=== PATIENT | female | born 1960 | race American Indian/Alaskan Native ===

== ENCOUNTER 2016-12-16 16:26 | Emergency (ER) | payer MEDICAID ==
[2016-12-16 16:40] VITALS: BP 169/78
--- NOTE | 2016-12-16 17:14 | EDM.PDOC ---
ED HPI GI/ABDOMINAL - General Chief Complaint: Abdominal Pain Stated Complaint: ABDOMINAL PAIN BY AMBULANCE Time Seen by Provider: 12/16/16 17:11 Source of Information: Reports: Patient History Limitations: Reports: No limitations - History of Present Illness INITIAL COMMENTS - FREE TEXT/NARRATIVE: pt states that she has a hernia that is reducible but is having abdominal pain currently. States that she felt the hernia pop out earlier but was told by her surgeon to lay flat and push it back in. No hernia noted upon arrival. Symptom Onset Date: 12/16/16 Location: RLQ Quality: Reports: ache Severity: moderate Associated Symptoms (-Female): Reports: denies other symptoms - Related Data Allergies/ADRs: Allergies Allergy/AdvReac Type Severity Reaction Status Date / Time codeine Allergy nausea and Verified 12/16/16 16:40 vomitting Penicillins Allergy Hives Verified 12/16/16 16:40 pentazocine lactate Allergy nausea and Verified 12/16/16 16:40 [From Talwin] vomitting Tetracyclines Allergy Swelling Verified 12/16/16 16:40 Home Meds: Home Meds Acetaminophen/oxyCODONE [Percocet 325-5 MG] 1 tab PO Q12H PRN 09/28/13 [History] traMADol [Ultram] 4 tab PO Q6H 05/10/15 [History] Ibuprofen [Advil] 800 mg PO Q12H PRN 06/11/16 [History] Past Medical History HEENT History: Reports: Impaired vision, Other (see below) Other HEENT History: WEARS CORRECTIVE LENSES Cardiovascular History: Reports: Aneurysm, SOB on exertion Other Cardiovascular History: PATIENT DENIES ANEURYSM Respiratory History: Reports: COPD, Pneumonia, recurrent, SOB Gastrointestinal History: Reports: None, Hepatitis, Other (see below) Other Gastrointestinal History: CHRONIC HEP C 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 History: Reports: 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: Musculoskeletal History: Reports: Back pain, chronic, Fibromyalgia, Osteoarthritis, Osteoporosis Neurological History: Reports: None, Other (see below) Other Neuro History: CHRONIC PAIN SYNDROME Psychiatric History: Reports: Depression Endocrine/Metabolic History: Reports: None Hematologic History: Reports: Blood transfusion(s) Immunologic History: Reports: None Oncologic (Cancer) History: Reports: None Dermatologic History: Reports: None - Infectious Disease History Infectious Disease History: Reports: Hepatitis C - Past Surgical History Head Surgeries/Procedures: Reports: None HEENT Surgical History: Reports: Oral surgery Cardiovascular Surgical History: Reports: None Respiratory Surgical History: Reports: None GI Surgical History: Reports: None, Colonoscopy, EGD, Hernia, inguinal Female Surgical History: Reports: Breast biopsy, section, Hysterectomy Endocrine Surgical History: Reports: None Neurological Surgical History: Reports: None Musculoskeletal Surgical History: Reports: None Oncologic Surgical History: Reports: None Dermatological Surgical History: Reports: None Social & Family History - Family History HEENT: Reports: Impaired vision Cardiac: Reports: None Respiratory: Reports: COPD GI: Reports: GERD : Reports: None OBGYN: Reports: Musculoskeletal: Reports: Arthritis Neurological: Reports: Migraines Psychiatric: Reports: Depression Endocrine/Metabolic: Reports: Diabetes, type II Hematologic: Reports: None Immunologic: Reports: None Dermatologic: Reports: None Oncologic: Reports: Breast, Other (see below) Other Oncologic Family History: "STOMACH, BREAST, JUST ALL OVER" - Tobacco Use Smoking Status *Q: Current Every Day Smoker Years of Tobacco use: 43 Packs/Tins Daily: 0.5 Used Tobacco, but Quit: No Second Hand Smoke Exposure: No - Caffeine Use Caffeine Use: Reports: Coffee, Soda Caffeine Use Comment: 6-7 8OZ CUPS DAILY - Alcohol Use Days Per Week of Alcohol Use: 2 Number of Drinks Per Day: 4 Total Drinks Per Week: 8 - Recreational Drug Use Recreational Drug Use: No Drug Use in Last 12 Months: No ED ROS GENERAL - Review of Systems Review Of Systems: See Below GI/Abdominal: Reports: Abdominal pain ED EXAM, GI/ABD - Physical Exam Exam: See Below Exam Limited By: No limitations General Appearance: alert, WD/WN, no apparent distress Respiratory/Chest: no respiratory distress, lungs clear, normal breath sounds, no accessory muscle use, chest non-tender Cardiovascular: normal peripheral pulses, regular rate, rhythm, no edema, no gallop, no JVD, no murmur, no rub GI/Abdominal: normal bowel sounds, soft, no organomegaly, no distention, no abnormal bruit, no mass, tenderness (No hernia noted to either side of abdomen however tender to palpation) Course - Vital Signs Last Recorded V/S: Last Vital Signs Temp 97.7 F 12/16/16 16:32 Pulse 96 12/16/16 16:32 Resp 16 12/16/16 16:32 BP 169/78 H 12/16/16 16:32 Pulse Ox 98 12/16/16 16:32 - Orders/Labs/Meds Meds: Medications Discontinued Medications Generic Name Dose Route Start Last Admin Trade Name Alexa PRN Reason Stop Dose Admin Tramadol HCl 50 mg 12/16/16 17:16 12/16/16 17:25 Ultram PO 12/16/16 17:17 50 mg ONETIME ONE Administration - Re-Assessments/Exams Free Text/Narrative Re-Assessment/Exam: 12/16/16 17:36 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 Departure - Departure Time of Disposition: 17:37 Disposition: Home, Self-Care 01 Condition: good Clinical Impression: Abdominal pain Qualifiers: Abdominal location: right lower quadrant Qualified Code(s): R10.31 - Right lower quadrant pain Instructions: Abdominal Pain, Adult, [id number] Forms: ED Department Discharge Additional Instructions: Make sure that you call your surgeon to have them evaluate your hernias. Return for any worsening symptoms.
[2016-12-16] MEDS ORDERED: traMADol 50 MG Tab PO ONE (17:16)
== END 2016-12-16 17:49 | disposition home or self-care (01) ==
LOC: DL.ED 16:26
DX: R10.31 Right lower quadrant pain (principal); J44.9 Chronic obstructive pulmonary disease, unspecified; Z87.01 Personal history of pneumonia (recurrent); M19.90 Unspecified osteoarthritis, unspecified site; F32.9 Major depressive disorder, single episode, unspecified; F17.210 Nicotine dependence, cigarettes, uncomplicated; Z88.0 Allergy status to penicillin; Z88.5 Allergy status to narcotic agent; Z88.1 Allergy status to other antibiotic agents; Z79.899 Other long term (current) drug therapy; Z98.890 Other specified postprocedural states; Z90.710 Acquired absence of both cervix and uterus
CPT/HCPCS: 99284; A9270

== ENCOUNTER 2017-05-03 07:48 | Emergency (ER) | payer MEDICAID ==
--- NOTE | 2017-05-03 08:15 | EDM.PDOC ---
ED HPI GENERAL MEDICAL PROBLEM - General Chief Complaint: General Stated Complaint: HERNIAS, SEVERE MUSCLE CRAMPS IN LEGS, [id number] Time Seen by Provider: 05/03/17 08:12 Source of Information: Reports: Patient, Old Records, RN, RN Notes Reviewed History Limitations: Reports: No Limitations - History of Present Illness INITIAL COMMENTS - FREE TEXT/NARRATIVE: Arrives from home by POV with c/o recurrent cramping in B/L lower legs. Pt states she randomly gets the cramps which at times become debilitating, similar to severe toshia horses. The cramps come without warning and are not related to time of day, activity level, sleep, or meal time. Pt also c/o chronic ventral hernias, but states that she has been seen before in the ER, and by her PCP. She had a hernia repair in late 2015, and has a future surgical consult already scheduled. Onset: Unknown/Unsure Duration: Chronic Location: Reports: Lower Extremity, Left, Lower Extremity, Right Quality: Reports: Other (cramping) Severity: Severe Improves with: Reports: None Worsens with: Reports: None Associated Symptoms: Reports: No Other Symptoms Bilateral Lower Abdomen Pain Score (Numeric/FACES): 9 - Related Data Allergies Allergy/AdvReac Type Severity Reaction Status Date / Time codeine Allergy nausea and Verified 05/03/17 07:55 vomitting Penicillins Allergy Hives Verified 05/03/17 07:55 pentazocine lactate Allergy nausea and Verified 05/03/17 07:55 [From Talwin] vomitting Tetracyclines Allergy Swelling Verified 05/03/17 07:55 Home Meds: Home Meds traMADol [Ultram] 1 tab PO QID PRN 05/10/15 [History] Ibuprofen [Advil] 800 mg PO Q12H PRN 06/11/16 [History] Albuterol [IJD: Ventolin HFA] 2 puff INH ASDIRECTED PRN 05/03/17 [History] Past Medical History HEENT History: Reports: Impaired Vision, Other (See Below) Other HEENT History: WEARS CORRECTIVE LENSES Cardiovascular History: Reports: Aneurysm, SOB on Exertion Other Cardiovascular History: PATIENT DENIES ANEURYSM Respiratory History: Reports: COPD, Pneumonia, Recurrent, SOB Gastrointestinal History: Reports: None, Hepatitis, Other (See Below) Other Gastrointestinal History: CHRONIC HEP C 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 History: Reports: 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: Musculoskeletal History: Reports: Back Pain, Chronic, Fibromyalgia, Osteoarthritis, Osteoporosis Neurological History: Reports: None, Other (See Below) Other Neuro History: CHRONIC PAIN SYNDROME Psychiatric History: Reports: Depression Endocrine/Metabolic History: Reports: None Hematologic History: Reports: Blood Transfusion(s) Immunologic History: Reports: None Oncologic (Cancer) History: Reports: None Dermatologic History: Reports: None - Infectious Disease History Infectious Disease History: Reports: Hepatitis C - Past Surgical History Head Surgeries/Procedures: Reports: None HEENT Surgical History: Reports: Oral Surgery GI Surgical History: Reports: None, Colonoscopy, EGD, Hernia, Inguinal, Hernia Repair/Other Female Surgical History: Reports: Breast Biopsy, Section, Hysterectomy Endocrine Surgical History: Reports: None Oncologic Surgical History: Reports: None Dermatological Surgical History: Reports: None Social & Family History - Family History HEENT: Reports: Impaired Vision Cardiac: Reports: None Respiratory: Reports: COPD GI: Reports: GERD : Reports: None OBGYN: Reports: Musculoskeletal: Reports: Arthritis Neurological: Reports: Migraines Psychiatric: Reports: Depression Endocrine/Metabolic: Reports: Diabetes, type II Hematologic: Reports: None Immunologic: Reports: None Dermatologic: Reports: None Oncologic: Reports: Breast, Other (See Below) Other Oncologic Family History: "STOMACH, BREAST, JUST ALL OVER" - Tobacco Use Smoking Status *Q: Current Every Day Smoker Years of Tobacco use: 44 Packs/Tins Daily: 0.5 Used Tobacco, but Quit: No Second Hand Smoke Exposure: Yes - Caffeine Use Caffeine Use: Reports: Coffee, Soda Caffeine Use Comment: 6-7 8OZ CUPS DAILY - Alcohol Use Days Per Week of Alcohol Use: 2 Number of Drinks Per Day: 4 Total Drinks Per Week: 8 - Recreational Drug Use Recreational Drug Use: No Drug Use in Last 12 Months: No - Living Situation & Occupation Living situation: Reports: , with Family Occupation: Unemployed ED ROS GENERAL - Review of Systems Review Of Systems: ROS reveals no pertinent complaints other than HPI. ED EXAM, GENERAL - Physical Exam Exam: See Below Exam Limited By: No Limitations General Appearance: Alert, No Apparent Distress, Thin ( ) Eye Exam: Bilateral Eye: Normal Inspection Ears: Hearing Grossly Normal Nose: Normal Inspection Throat/Mouth: Normal Oropharynx, Normal Voice, No Airway Compromise Head: Atraumatic, Normocephalic Neck: Normal Inspection, Supple, Non-Tender, Full Range of Motion Respiratory/Chest: No Respiratory Distress, No Accessory Muscle Use, Decreased Breath Sounds Cardiovascular: Regular Rate, Rhythm GI/Abdominal: Normal Bowel Sounds, Soft, Non-Tender, No Distention, Other (no palpable hernias). No: Guarding, Rigid, Rebound (Female) Exam: Deferred Rectal (Female) Exam: Deferred Back Exam: Normal Inspection, Full Range of Motion, NT Extremities: Normal Inspection, Normal Range of Motion, Non-Tender, Normal Capillary Refill, No Pedal Edema Neurological: Alert, Oriented, CN II-XII Intact, Normal Cognition, Normal Gait, No Motor/Sensory Deficits Psychiatric: Normal Affect, Normal Mood Skin Exam: Warm, Dry, Intact, Normal Color, No Rash Course - Vital Signs Last Recorded V/S: Last Vital Signs Temp 36.4 C 05/03/17 08:04 Pulse 95 05/03/17 08:04 Resp 18 05/03/17 08:04 BP 197/109 H 05/03/17 08:04 Pulse Ox 100 05/03/17 08:04 - Orders/Labs/Meds Labs: Laboratory Tests 05/03/17 05/03/17 Range/Units 08:28 08:28 WBC 5.8 (5.0-10.0) 10^3/uL RBC 4.78 (4.2-5.4) 10^6/uL Hgb 14.5 (12.0-16.0) g/dL Hct 44.4 (37.0-47.0) % MCV 92.9 (80-100) fL MCH 30.3 (27.0-34.0) pg MCHC 32.7 L (33.0-35.0) g/dL Plt Count 339 (150-450) 10^3/uL Neut % (Auto) 73.8 (42.2-75.2) % Lymph % (Auto) 11.8 L (20.5-50.1) % Iron % (Auto) 12.3 H (2-8) % Eos % (Auto) 1.6 (1.0-3.0) % Baso % (Auto) 0.5 (0.0-1.0) % Sodium 137 (135-145) mmol/L Potassium 3.4 L (3.6-5.0) mmol/L Chloride 97 L (101-111) mmol/L Carbon Dioxide 24.0 (21.0-31.0) mmol/L Anion Gap 19.4 BUN 11 (7-18) mg/dL Creatinine 0.6 (0.6-1.3) mg/dL Est Cr Clr Drug Dosing 68.89 mL/min Estimated GFR (MDRD) > 60 BUN/Creatinine Ratio 18.33 Glucose 109 H (74-105) mg/dL Calcium 9.5 (8.4-10.2) mg/dl Magnesium 1.7 L (1.8-2.5) mg/dL Total Bilirubin 0.8 (0.2-1.0) mg/dL AST 42 (10-42) IU/L ALT 19 (10-60) IU/L Alkaline Phosphatase 134 H (42-121) IU/L Total Protein 8.2 (6.7-8.2) g/dl Albumin 4.4 (3.2-5.5) g/dl Globulin 3.8 Albumin/Globulin Ratio 1.16 Meds: Medications Discontinued Medications Generic Name Dose Route Start Last Admin Trade Name Freq PRN Reason Stop Dose Admin Magnesium Oxide 500 mg 05/04/17 08:56 Magnesium Oxide PO 05/04/17 08:57 ONETIME ONE Magnesium Oxide 500 mg 05/03/17 08:56 05/03/17 09:06 Magnesium Oxide PO 05/03/17 08:57 500 mg ONETIME ONE Administration Potassium Chloride 40 meq 05/03/17 08:55 05/03/17 09:05 Klor-Con 10 PO 05/03/17 08:56 40 meq ONETIME ONE Administration Tramadol HCl 50 mg 05/03/17 08:22 05/03/17 08:27 Ultram PO 05/03/17 08:23 50 mg ONETIME ONE Administration Departure - Departure Time of Disposition: 09:06 Disposition: Home, Self-Care 01 Condition: Good Clinical Impression: Leg cramps, Hypokalemia, Hypomagnesemia, Ventral hernia without obstruction or gangrene - Discharge Information Instructions: Leg Cramps, Hypokalemia, Hypomagnesemia, Hernia, Adult, Easy-to- Read Forms: ED Department Discharge Additional Instructions: Follow up in clinic in 5 to 7 days for recheck of potassium and magnesium levels , and leg cramps. See Dr. Hernandez for Tramadol refill, as controlled substance medications such as Tramadol cannot be refilled in the Emergency Department.
[2017-05-03] MEDS ORDERED: traMADol 50 MG Tab PO ONE (08:22)
[2017-05-03 08:53] LABS: CHLORIDE,CL 97 mmol/L (101-111); SODIUM,NA 137 mmol/L (135-145)
[2017-05-03] MEDS ORDERED: Potassium Chloride 10 MEQ Tab.ER PO ONE (08:55)
[2017-05-03 09:16] VITALS: BP 177/99
== END 2017-05-03 09:22 | disposition home or self-care (01) ==
LOC: DL.ED 07:48
DX: E87.6 Hypokalemia (principal); K43.9 Ventral hernia without obstruction or gangrene; E83.42 Hypomagnesemia; H54.7 Unspecified visual loss; J44.9 Chronic obstructive pulmonary disease, unspecified; M81.0 Age-related osteoporosis without current pathological fracture; F17.210 Nicotine dependence, cigarettes, uncomplicated; Z87.01 Personal history of pneumonia (recurrent); Z88.5 Allergy status to narcotic agent; Z88.0 Allergy status to penicillin; Z88.1 Allergy status to other antibiotic agents
CPT/HCPCS: 36415; 80053; 83735; 85025; 99284; A9270

== ENCOUNTER 2017-08-03 09:50 | Emergency (ER) | payer MEDICAID ==
[2017-08-03 10:05] VITALS: BP 148/94
[2017-08-03 11:43] LABS: CHLORIDE,CL 94 mmol/L (101-111); SODIUM,NA 134 mmol/L (135-145)
[2017-08-03] MEDS ORDERED: Potassium Chloride 10 MEQ Tab.ER PO ONE (11:55)
[2017-08-03] MEDS ORDERED: HYDROmorphone 1 MG/ML Syringe IVPUSH ONE (12:04)
--- NOTE | 2017-08-03 12:08 | EDM.PDOC ---
Scribed by Elida Santos 08/03/17 1207 for Cecilia Lee NP ED HPI GENERAL MEDICAL PROBLEM - General Chief Complaint: Abdominal Pain Stated Complaint: [id number] HERNIA Time Seen by Provider: 08/03/17 11:20 Source of Information: Reports: Patient, RN, RN Notes Reviewed History Limitations: Reports: No Limitations - History of Present Illness INITIAL COMMENTS - FREE TEXT/NARRATIVE: Patient has a history of abdominal hernia for 2 years. Saw specialist yesterday for hernia. CT abdomen completed there. Patient waiting on plan of care and results. Starting yesterday lower abdominal pain worsening up to 9/10 pain. Denies aches, chills, fever, diarrhea, nausea, vomiting, chest pain, SOB, or abdominal pain. It worsens with long distance walking. Last BM yesterday. Patient states medium size and soft. Patient states that at night her legs and feet have been cramping. She states that she has a history of hypokalemia. Location: Reports: Abdomen Quality: Reports: Ache Severity: Mild Improves with: Reports: None Worsens with: Reports: None Associated Symptoms: Reports: No Other Symptoms Middle Abdomen Pain Score (Numeric/FACES): 8 - Related Data Allergies Allergy/AdvReac Type Severity Reaction Status Date / Time codeine Allergy nausea and Verified 05/03/17 07:55 vomitting Penicillins Allergy Hives Verified 05/03/17 07:55 pentazocine lactate Allergy nausea and Verified 05/03/17 07:55 [From Renee] vomitting Tetracyclines Allergy Swelling Verified 05/03/17 07:55 Home Meds: Home Meds traMADol [Ultram] 1 tab PO QID PRN 05/10/15 [History] Ibuprofen [Advil] 800 mg PO Q12H PRN 06/11/16 [History] Albuterol [IJD: Ventolin HFA] 2 puff INH ASDIRECTED PRN 05/03/17 [History] Past Medical History HEENT History: Reports: Impaired Vision, Other (See Below) Other HEENT History: WEARS CORRECTIVE LENSES Cardiovascular History: Reports: Aneurysm, SOB on Exertion Other Cardiovascular History: PATIENT DENIES ANEURYSM Respiratory History: Reports: COPD, Pneumonia, Recurrent, SOB Gastrointestinal History: Reports: None, Hepatitis, Other (See Below) Other Gastrointestinal History: CHRONIC HEP C 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 History: 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: 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: Musculoskeletal History: Reports: Back Pain, Chronic, Fibromyalgia, Osteoarthritis, Osteoporosis Neurological History: Reports: None, Other (See Below) Other Neuro History: CHRONIC PAIN SYNDROME Psychiatric History: Reports: Depression Endocrine/Metabolic History: Reports: None Hematologic History: Reports: Blood Transfusion(s) Immunologic History: Reports: None Oncologic (Cancer) History: Reports: None Dermatologic History: Reports: None - Infectious Disease History Infectious Disease History: Reports: Hepatitis C - Past Surgical History Head Surgeries/Procedures: Reports: None HEENT Surgical History: Reports: Oral Surgery GI Surgical History: Reports: None, Colonoscopy, EGD, Hernia, Inguinal, Hernia Repair/Other, Other (See Below) Other GI Surgeries/Procedures: umbilical hernias Female Surgical History: Reports: Breast Biopsy, Section, Hysterectomy Endocrine Surgical History: Reports: None Oncologic Surgical History: Reports: None Dermatological Surgical History: Reports: None Social & Family History - Family History HEENT: Reports: Impaired Vision Cardiac: Reports: None Respiratory: Reports: COPD GI: Reports: GERD : Reports: None OBGYN: Reports: Musculoskeletal: Reports: Arthritis Neurological: Reports: Migraines Psychiatric: Reports: Depression Endocrine/Metabolic: Reports: Diabetes, type II Hematologic: Reports: None Immunologic: Reports: None Dermatologic: Reports: None Oncologic: Reports: Breast, Other (See Below) Other Oncologic Family History: "STOMACH, BREAST, JUST ALL OVER" - Tobacco Use Smoking Status *Q: Current Every Day Smoker Years of Tobacco use: 45 Packs/Tins Daily: 0.5 Used Tobacco, but Quit: No Second Hand Smoke Exposure: Yes - Caffeine Use Caffeine Use: Reports: Coffee, Soda Caffeine Use Comment: 6-7 8OZ CUPS DAILY - Alcohol Use Days Per Week of Alcohol Use: 3 Number of Drinks Per Day: 6 Total Drinks Per Week: 18 - Recreational Drug Use Recreational Drug Use: No Drug Use in Last 12 Months: No - Living Situation & Occupation Living situation: Reports: , with Family Occupation: Unemployed ED ROS GENERAL - Review of Systems Review Of Systems: ROS reveals no pertinent complaints other than HPI. ED EXAM, GI/ABD - Physical Exam Exam: See Below Exam Limited By: No Limitations General Appearance: Alert, WD/WN, No Apparent Distress Eyes: Bilateral: Normal Appearance Ears: Other (Impacted cerumen right ear. Unable to clear with curet due to pain. Advised Debrox ear drops OTC.) Nose: Normal Inspection, Normal Mucosa, No Blood Throat/Mouth: Other (asnormal dentition.) Head: Atraumatic, Normocephalic Neck: Normal Inspection, Supple, Non-Tender, Full Range of Motion Respiratory/Chest: Other (S1 S2 without murmur, regular, normal rate. ) Cardiovascular: Normal Peripheral Pulses, Regular Rate, Rhythm, No Edema, No Gallop, No JVD, No Murmur, No Rub GI/Abdominal Exam: Other (diminished bowel sounds throughout. LLQ and RLQ hernia. Tenderness to RLQ and LLQ.) (Female) Exam: Deferred Rectal (Female) Exam: Deferred Back Exam: Normal Inspection, Full Range of Motion, NT Extremities: Normal Inspection, Normal Range of Motion, Non-Tender, Normal Capillary Refill, No Pedal Edema Psychiatric: Normal Affect, Normal Mood Skin Exam: Warm, Dry, Intact, Normal Color, No Rash Lymphatic: No Adenopathy Course - Vital Signs Last Recorded V/S: Last Vital Signs Temp 97 F 08/03/17 10:04 Pulse 106 H 08/03/17 10:04 Resp 16 08/03/17 10:04 BP 148/94 H 08/03/17 10:04 Pulse Ox 99 08/03/17 10:04 - Orders/Labs/Meds Orders: Active Orders 24 hr Category Date Time Status HYDROmorphone [Dilaudid] Med 08/03/17 12:04 Once 0.5 mg IVPUSH ONETIME ONE Medication Orders Hydromorphone HCl (Dilaudid) 0.5 mg IVPUSH ONETIME ONE Stop: 08/03/17 12:05 Labs: Laboratory Tests 08/03/17 08/03/17 Range/Units 11:15 11:15 WBC 8.0 (5.0-10.0) 10^3/uL RBC 4.82 (4.2-5.4) 10^6/uL Hgb 14.7 (12.0-16.0) g/dL Hct 44.2 (37.0-47.0) % MCV 91.7 (80-100) fL MCH 30.5 (27.0-34.0) pg MCHC 33.3 (33.0-35.0) g/dL Plt Count 327 (150-450) 10^3/uL Neut % (Auto) 78.3 H (42.2-75.2) % Lymph % (Auto) 10.8 L (20.5-50.1) % [place] % (Auto) 10.1 H (2-8) % Eos % (Auto) 0.3 L (1.0-3.0) % Baso % (Auto) 0.5 (0.0-1.0) % Sodium 134 L (135-145) mmol/L Potassium 3.2 L (3.6-5.0) mmol/L Chloride 94 L (101-111) mmol/L Carbon Dioxide 25.0 (21.0-31.0) mmol/L Anion Gap 18.2 BUN 18 (7-18) mg/dL Creatinine 0.9 (0.6-1.3) mg/dL Est Cr Clr Drug Dosing 43.91 mL/min Estimated GFR (MDRD) > 60 BUN/Creatinine Ratio 20.00 Glucose 127 H (74-105) mg/dL Calcium 9.8 (8.4-10.2) mg/dl Total Bilirubin 1.0 (0.2-1.0) mg/dL AST 44 H (10-42) IU/L ALT 24 (10-60) IU/L Alkaline Phosphatase 128 H (42-121) IU/L Total Protein 8.6 H (6.7-8.2) g/dl Albumin 4.7 (3.2-5.5) g/dl Globulin 3.9 Albumin/Globulin Ratio 1.21 Amylase 55 (28-100) U/L Lipase 35 (22-51) U/L Meds: Medications Generic Name Dose Route Start Last Admin Trade Name Freq PRN Reason Stop Dose Admin Hydromorphone HCl 0.5 mg 08/03/17 12:04 Dilaudid IVPUSH 08/03/17 12:05 ONETIME ONE Discontinued Medications Generic Name Dose Route Start Last Admin Trade Name Freq PRN Reason Stop Dose Admin Potassium Chloride 40 meq 08/03/17 11:55 Klor-Con 10 PO 08/03/17 11:56 ONETIME ONE - Re-Assessments/Exams Free Text/Narrative Re-Assessment/Exam: 08/03/17 11:46 Abdominal binder was placed. 08/03/17 12:05 Abdominal binder applied. Patient instructed to wear it when she is up and around. Departure - Departure Time of Disposition: 12:05 Disposition: Home, Self-Care 01 Condition: Fair Clinical Impression: Hypokalemia, Hernia Abdominal pain Qualifiers: Abdominal location: lower abdomen, unspecified Qualified Code(s): R10.30 - Lower abdominal pain, unspecified - Discharge Information Instructions: Abdominal Pain, Adult, [id number], Hypokalemia, Potassium Content of Foods, Muscle Cramps and Spasms, [id number] Forms: ED Department Discharge Additional Instructions: Increase potassium intake in foods Increase water intake Wear abdominal belt as tolerated when up and around Follow up at [place] regarding your CT results and possible surgery. - My Orders Last 24 Hours: My Active Orders 08/03/17 12:04 HYDROmorphone [Dilaudid] 0.5 mg IVPUSH ONETIME ONE - Assessment/Plan Last 24 Hours: My Active Orders 08/03/17 12:04 HYDROmorphone [Dilaudid] 0.5 mg IVPUSH ONETIME ONE I have read and agree with the documentation that has been completed regarding this visit. By signing this record, I attest that the documentation was completed in my physical presence and is an accurate record of the encounter.
== END 2017-08-03 12:45 | disposition home or self-care (01) ==
LOC: DL.ED 09:50
DX: K46.9 Unspecified abdominal hernia without obstruction or gangrene (principal); E87.6 Hypokalemia; F17.210 Nicotine dependence, cigarettes, uncomplicated; Z88.5 Allergy status to narcotic agent; Z88.0 Allergy status to penicillin; Z88.8 Allergy status to other drugs, medicaments and biological substances; Z88.1 Allergy status to other antibiotic agents
CPT/HCPCS: 36415; 80053; 82150; 83690; 85025; 96374; 99284; A9270; J1170

== ENCOUNTER 2018-02-24 23:30 | Emergency (ER) | payer MEDICAID ==
[2018-02-24] MEDS ORDERED: Albuterol/Ipratropium 3.0-0.5 MG/3 ML Neb Soln INH ONE (23:31)
[2018-02-24] MEDS ORDERED: LORazepam 0.5 MG Tab PO ONE (23:31)
[2018-02-24] MEDS ORDERED: Albuterol/Ipratropium 3.0-0.5 MG/3 ML Neb Soln ONE (23:57)
[2018-02-25] MEDS ORDERED: LORazepam 0.5 MG Tab ONE (00:40)
[2018-02-25 02:31] LABS: CHLORIDE,CL 103 mmol/L (101-111); SODIUM,NA 135 mmol/L (135-145)
== END 2018-02-25 01:12 | disposition home or self-care (01) ==
LOC: DL.ED 23:30
DX: F41.0 Panic disorder [episodic paroxysmal anxiety] (principal); Z88.5 Allergy status to narcotic agent; Z88.0 Allergy status to penicillin; Z88.1 Allergy status to other antibiotic agents
CPT/HCPCS: 36415; 71046; 80053; 80305; 81001; 83880; 84484; 85025; 99285; A9270

== ENCOUNTER → 2019-01-02 | Outpatient (CLI) | payer MEDICAID ==
--- NOTE | 2019-01-03 12:44 | MR ---
Clinical history: 58-year-old female chronic low back pain and "radiculopathy" noted to have "scoliosis, multilevel disc disease and chronic hypertrophic arthritic changes lumbar spine" on previous CT exams February and May,. Scan technique: Sagittal T1/T2/T2 fat saturation and unenhanced axial T1/T2 magnetic resonance images of the lumbar spine obtained while the patient was lying supine on the [employer] 1.[employer] magnet [place], [place]. All data archived in the PACS system for storage, reformatting and study. Interpretation: Abnormal. 1. Dextrorotatory scoliosis and exaggerated lumbar lordosis. 2. Spondylolysis (fracture) and chronic anterior dislocation (spondylolisthesis) L5 vertebral body. 3. Marginal spondylosis and signs of multilevel disc degeneration (desiccation). No other fracture or dislocation lumbar spine. 4. Prominent disc-osteophyte complexes contributing to some mid and lower lumbar spinal canal stenosis (asymmetrically, on the right, at the L2-3/L4-5: and, on the left, at the L2-3 levels). 5. Spondylolisthesis L5 vertebral body contributing to lower lumbar L5-S1 spinal canal narrowing. 6. No surgical disc herniation or extruded "free" intracanalicular disc fragment. 7. No intracanalicular soft tissue tumor mass. No congenital nerve root cysts. CONCLUSION: Chronic multilevel disc degeneration. L5 spondylolysis/spondylolisthesis. No surgical disc herniation. Prominent disc-osteophyte complexes asymmetrically contributing to mild spinal stenosis, particularly L2-3 and L4-5 levels. Moderate spinal canal stenosis associated with spondylolisthesis at the lowest L5-S1 level.
== END ==
LOC: DL.MRI 12:57
PROVIDERS: ATTEND Internal Medicine
DX: M51.16 Intervertebral disc disorders with radiculopathy, lumbar region (principal); G89.29 Other chronic pain; M25.78 Osteophyte, vertebrae; M48.061 Spinal stenosis, lumbar region without neurogenic claudication; M43.17 Spondylolisthesis, lumbosacral region
CPT/HCPCS: 72148

== ENCOUNTER 2019-12-17 12:37 | Emergency (ER) | payer MEDICAID ==
[2019-12-17 12:46] VITALS: BP 170/81; PULSE 86
--- NOTE | 2019-12-17 13:00 | EDM.PDOC ---
ED HPI GENERAL MEDICAL PROBLEM - General Chief Complaint: Neuro Symptoms/Deficits Stated Complaint: AMBULANCE Time Seen by Provider: 12/17/19 12:45 Source of Information: Reports: Patient, EMS, EMS Notes Reviewed, RN, RN Notes Reviewed History Limitations: Reports: Other (weakness to left arm and left leg) - History of Present Illness INITIAL COMMENTS - FREE TEXT/NARRATIVE: Patient presents to ER per [facility] with complaint of left sided weakness. patient states she has had left upper extremity and left lower extremity weakness for the past 3 months, with increased weakness today. Patient states today she feels she is unable to walk, as she feels very weak in the left leg, complains of cramping in the left leg at times. Patient admits to history of COPD. Denies any past history of stroke. NIH score at this time is negative. Onset: Gradual - Related Data Allergies Allergy/AdvReac Type Severity Reaction Status Date / Time codeine Allergy nausea and Verified 12/17/19 12:41 vomitting Penicillins Allergy Hives Verified 12/17/19 12:41 pentazocine lactate Allergy nausea and Verified 12/17/19 12:41 [From Renee] vomitting Tetracyclines Allergy Swelling Verified 12/17/19 12:41 Home Meds: Home Meds traMADol [Ultram] 1 tab PO BID PRN 05/10/15 [History] Ibuprofen [Advil] 800 mg PO Q12H PRN 06/11/16 [History] Albuterol [IJD: Ventolin HFA] 2 puff INH ASDIRECTED PRN 05/03/17 [History] Past Medical History HEENT History: Reports: Impaired Vision, Other (See Below) Other HEENT History: WEARS CORRECTIVE LENSES Cardiovascular History: Reports: Aneurysm, SOB on Exertion Other Cardiovascular History: PATIENT DENIES ANEURYSM Respiratory History: Reports: COPD, Pneumonia, Recurrent, SOB Gastrointestinal History: Reports: None, Hepatitis, Other (See Below) Other Gastrointestinal History: CHRONIC HEP C 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 History: Reports: None 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: Musculoskeletal History: Reports: Back Pain, Chronic, Fibromyalgia, Osteoarthritis, Osteoporosis Neurological History: Reports: None, Other (See Below) Other Neuro History: CHRONIC PAIN SYNDROME Psychiatric History: Reports: Depression Endocrine/Metabolic History: Reports: None Hematologic History: Reports: Blood Transfusion(s) Immunologic History: Reports: None Oncologic (Cancer) History: Reports: None Dermatologic History: Reports: None - Infectious Disease History Infectious Disease History: Reports: Hepatitis C - Past Surgical History Head Surgeries/Procedures: Reports: None HEENT Surgical History: Reports: Oral Surgery GI Surgical History: Reports: None, Colonoscopy, EGD, Hernia, Inguinal, Hernia Repair/Other, Other (See Below) Other GI Surgeries/Procedures: umbilical hernias Female Surgical History: Reports: Breast Biopsy, Section, Hysterectomy Endocrine Surgical History: Reports: None Oncologic Surgical History: Reports: None Dermatological Surgical History: Reports: None Social & Family History - Family History HEENT: Reports: Impaired Vision Cardiac: Reports: None Respiratory: Reports: COPD GI: Reports: GERD : Reports: None OBGYN: Reports: Musculoskeletal: Reports: Arthritis Neurological: Reports: Migraines Psychiatric: Reports: Depression Endocrine/Metabolic: Reports: Diabetes, type II Hematologic: Reports: None Immunologic: Reports: None Dermatologic: Reports: None Oncologic: Reports: Breast, Other (See Below) Other Oncologic Family History: "STOMACH, BREAST, JUST ALL OVER" - Caffeine Use Caffeine Use: Reports: Coffee, Soda Caffeine Use Comment: 6-7 8OZ CUPS DAILY - Living Situation & Occupation Living situation: Reports: , with Family Occupation: Unemployed ED ROS GENERAL - Review of Systems Review Of Systems: Comprehensive ROS is negative, except as noted in HPI. ED EXAM, NEURO - Physical Exam Exam: See Below Exam Limited By: No Limitations General Appearance: Alert, WD/WN, No Apparent Distress Eye Exam: Bilateral Eye: EOMI, Normal Inspection Ears: Normal External Exam, Hearing Grossly Normal Nose: Normal Inspection Throat/Mouth: Normal Inspection, Normal Voice, No Airway Compromise Head Exam: Atraumatic, Normocephalic Neck: Normal Inspection, Supple, Non-Tender, Full Range of Motion Respiratory/Chest: No Respiratory Distress, No Accessory Muscle Use, Chest Non- Tender, Decreased Breath Sounds, Crackles (bases bilaterally) Cardiovascular: Normal Peripheral Pulses, Regular Rate, Rhythm, No Edema, No Gallop, No JVD, No Murmur, No Rub GI/Abdominal: Normal Bowel Sounds, Soft, Non-Tender, No Organomegaly, No Distention, No Abnormal Bruit, No Mass (Female) Exam: Deferred Rectal (Female) Exam: Deferred Neurological: Alert, Normal Mood/Affect, Normal Dorsiflexion, CN II-XII Intact, No Motor/Sensory Deficits, Oriented x 3 Back Exam: Normal Inspection, Full Range of Motion, NT Extremities: Normal Inspection, Normal Range of Motion, Non-Tender, No Pedal Edema, Normal Capillary Refill, Leg Pain (cramping left leg), Limited Range of Motion (left leg. left arm) Psychiatric: Normal Affect, Normal Mood Skin Exam: Warm, Dry, Intact, Normal Color, No Rash Course - Vital Signs Last Recorded V/S: Last Vital Signs Temp 98.4 F 12/17/19 12:45 Pulse 86 12/17/19 12:45 Resp 16 12/17/19 12:45 BP 170/81 H 12/17/19 12:45 Pulse Ox 98 12/17/19 12:45 - Orders/Labs/Meds Orders: Active Orders 24 hr Category Date Time Status EKG Documentation Completion [RC] STAT Care 12/17/19 12:43 Active Head wo Cont [CT] Stat Exams 12/17/19 12:43 Taken CULTURE URINE [RM] Stat Lab 12/17/19 13:14 Received Labs: Laboratory Tests 12/17/19 12/17/19 12/17/19 Range/Units 13:14 13:18 13:18 WBC 5.2 (5.0-10.0) 10^3/uL RBC 4.11 L (4.2-5.4) 10^6/uL Hgb 13.6 (12.0-16.0) g/dL Hct 40.6 (37.0-47.0) % MCV 98.8 D (80-100) fL MCH 33.1 (27.0-34.0) pg MCHC 33.5 (33.0-35.0) g/dL Plt Count 317 (150-450) 10^3/uL Neut % (Auto) 54.8 (42.2-75.2) % Lymph % (Auto) 24.9 (20.5-50.1) % [place] % (Auto) 17.4 H (2-8) % Eos % (Auto) 2.5 (1.0-3.0) % Baso % (Auto) 0.4 (0.0-1.0) % Sodium 136 (136-145) mmol/L Potassium 4.7 (3.5-5.1) mmol/L Chloride 98 (98-107) mmol/L Carbon Dioxide 24 (21-32) mmol/L Anion Gap 18.7 H (7-13) mEq/L BUN 15 (7-18) mg/dL Creatinine 0.80 (0.55-1.02) mg/dL Est Cr Clr Drug Dosing 53.66 mL/min Estimated GFR (MDRD) > 60 BUN/Creatinine Ratio 18.8 (No establ ref range) Glucose 122 H (74-99) mg/dL Calcium 9.1 (8.5-10.1) mg/dL Total Bilirubin 0.3 (0.2-1.0) mg/dL AST 47 H (15-37) U/L ALT 44 (14-59) U/L Alkaline Phosphatase 107 (46-116) U/L Total Protein 7.8 (6.4-8.2) g/dL Albumin 4.2 (3.4-5.0) g/dL Globulin 3.6 Albumin/Globulin Ratio 1.2 Urine Color Dark yellow (YELLOW) Urine Appearance Cloudy (CLEAR) Urine pH 6.5 (5.0-9.0) Ur Specific [place] >= 1.030 (1.005-1.030) Urine Protein 30 H (NEGATIVE) Urine Glucose (UA) Negative (NEGATIVE) Urine Ketones 15 H (NEGATIVE) Urine Occult Blood Trace-intact H (NEGATIVE) Urine Nitrite Positive H (NEGATIVE) Urine Bilirubin Negative (NEGATIVE) Urine Urobilinogen 0.2 (0.2-1.0) mg/dL Ur Leukocyte Esterase Negative (NEGATIVE) Urine RBC 0-5 /HPF Urine WBC 5-10 H (0-5/HPF) /HPF Ur Epithelial Cells Few (NOT SEEN) /HPF Urine Bacteria Many H (0-FEW/HPF) /HPF Urine Mucus Not seen (NOT SEEN) /LPF Meds: Medications Discontinued Medications Generic Name Dose Route Start Last Admin Trade Name Freq PRN Reason Stop Dose Admin Nitrofurantoin Macrocrystals 100 mg 12/17/19 14:06 12/17/19 14:21 Macrobid PO 12/17/19 14:07 100 mg ONETIME ONE Administration - Radiology Interpretation Free Text/Narrative:: Head CT wo contrast: FINDINGS: Brain: No hemorrhage. 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 No mass effect. Ventricles: Normal. No ventriculomegaly. Bones/joints: Unremarkable. No acute fracture. Sinuses: No acute sinusitis. Mastoid air cells: Unremarkable. Soft tissues: Unremarkable. IMPRESSION: No acute intracranial abnormality. ASSESSMENT: ASPECTS ([facility] Stroke Program Early CT Score) is 10. Thank you for allowing us to participate in the care of your patient. Dictated and Authenticated by: Carlo Guerra MD 12/17/2019 12:58 PM Central Time ([place] & [place]) See rad report Departure - Departure Time of Disposition: 14:52 Disposition: Home, Self-Care 01 Condition: Fair Clinical Impression: Limb weakness, Muscle weakness Urinary tract infection Qualifiers: Urinary tract infection type: acute cystitis Hematuria presence: without hematuria Qualified Code(s): N30.00 - Acute cystitis without hematuria - Discharge Information *PRESCRIPTION DRUG MONITORING PROGRAM REVIEWED*: No *COPY OF PRESCRIPTION DRUG MONITORING REPORT IN PATIENT DEON: No Instructions: Antibiotic Medicine, Adult, [id number], Weakness, [id number] , Urinary Tract Infection, Adult, [id number] Forms: ED Department Discharge Additional Instructions: RX: Macrobid Drink plenty of water Follow up with your primary care provider for referral to physical therapy Sepsis Event Note - Evaluation Sepsis Screening Result: No Definite Risk - Focused Exam Vital Signs: Vital Signs Temp Pulse Resp BP Pulse Ox 12/17/19 12:45 98.4 F 86 16 170/81 H 98 Date Exam was Performed: 12/17/19 Time Exam was Performed: 14:54 - My Orders Last 24 Hours: My Active Orders 12/17/19 12:43 EKG Documentation Completion [RC] STAT Head wo Cont [CT] Stat 12/17/19 13:14 CULTURE URINE [RM] Stat - Assessment/Plan Last 24 Hours: My Active Orders 12/17/19 12:43 EKG Documentation Completion [RC] STAT Head wo Cont [CT] Stat 12/17/19 13:14 CULTURE URINE [RM] Stat
[2019-12-17 13:43] LABS: ANION GAP 18.7 mEq/L (7-13); CHLORIDE,CL 98 mmol/L (98-107); SODIUM,NA 136 mmol/L (136-145)
[2019-12-17] MEDS ORDERED: Nitrofurantoin Monohydrate/Macrocrystalline 100 MG Cap PO ONE (14:06)
== END 2019-12-17 14:57 | disposition home or self-care (01) ==
LOC: DL.ED 12:37
DX: M62.81 Muscle weakness (generalized) (principal); N30.00 Acute cystitis without hematuria; J44.9 Chronic obstructive pulmonary disease, unspecified; Z90.710 Acquired absence of both cervix and uterus; Z88.0 Allergy status to penicillin; Z88.5 Allergy status to narcotic agent; Z88.8 Allergy status to other drugs, medicaments and biological substances; Z88.1 Allergy status to other antibiotic agents
CPT/HCPCS: 36415; 70450; 80053; 81001; 85025; 87086; 87088; 87186; 93005; 99285; A9270

== ENCOUNTER 2020-11-16 16:08 | Emergency (ER) | payer MEDICAID ==
[2020-11-16 16:32] VITALS: BP 147/83; PULSE 107
--- NOTE | 2020-11-16 17:03 | CR ---
EXAMINATION: Left Ribs 2V w Chest Lt SEX: Female AGE: 60 years CLINICAL HISTORY: 60-year-old female injured in fall. INTERPRETATION: Generally poor inspiratory effort. Acute left 10th rib fracture. 1. Dorsolumbar scoliosis, multilevel disc disease and hypertrophic marginal spondylosis. 1. *Nondisplaced FRACTURE anterior 10th rib, on the left. 2. No sign of other rib fracture, lung contusion, atelectasis or pleural effusion. Old healed fracture left clavicle. 4. No foreign bodies. No pneumothorax or pneumomediastinum. No shift of midline structures. 5. Normal cardiac silhouette. No pulmonary vascular congestion, cephalization of flow or alveolar edema. 6. No new lung mass, lobar infiltrate or atelectasis since comparison exam February 2018. 7. No peripheral "groundglass" interstitial lung densities.
== END 2020-11-16 18:22 | disposition left against medical advice (07) ==
LOC: DL.ED 16:08
DX: Z53.21 Procedure and treatment not carried out due to patient leaving prior to being seen by health care provider (principal)
CPT/HCPCS: 71101-LT

== ENCOUNTER 2021-02-21 23:33 | Emergency (ER) | payer MEDICAID ==
[2021-02-22 00:21] VITALS: PULSE 75
[2021-02-22] MEDS ORDERED: traMADol 50 MG Tab PO ONE (01:00)
[2021-02-22 01:56] LABS: ANION GAP 14.8 mEq/L (7-13)
[2021-02-22 02:38] VITALS: BP 174/92
--- NOTE | 2021-02-22 02:50 | EDM.PDOC ---
ED HPI GENERAL MEDICAL PROBLEM - General Chief Complaint: Lower Extremity Injury/Pain Stated Complaint: LEFT LEG LOCKED Time Seen by Provider: 02/22/21 00:15 Source of Information: Reports: Patient, RN History Limitations: Reports: No Limitations - History of Present Illness INITIAL COMMENTS - FREE TEXT/NARRATIVE: ED with leg and foot pain, present for month, no new change. Was scheduled to have surgery on left leg on Saturday but tested positive for COVID. o current sx. State told pneumonia 2 weeks ago but was not tested for COVID at that time. Tried tylenol but upsets stomach and doesn't help. Ibuprofen not working either. Has not been able to schedule anything with PCP this week due to COVID status. Lower legs twitchy jerk at random. Can't sleep tonight. Left Feet Pain Score (Numeric/FACES): 8 - Related Data Allergies Allergy/AdvReac Type Severity Reaction Status Date / Time codeine Allergy nausea and Verified 02/22/21 00:20 vomitting Penicillins Allergy Hives Verified 02/22/21 00:20 pentazocine lactate Allergy nausea and Verified 02/22/21 00:20 [From Renee] vomitting Tetracyclines Allergy Swelling Verified 02/22/21 00:20 Home Meds: Home Meds Ibuprofen [Advil] 800 mg PO Q12H PRN 06/11/16 [History] Albuterol [IJD: Ventolin HFA] 2 puff INH ASDIRECTED PRN 05/03/17 [History] Past Medical History HEENT History: Reports: Impaired Vision, Other (See Below) Other HEENT History: WEARS CORRECTIVE LENSES Cardiovascular History: Reports: Aneurysm, Hypertension, SOB on Exertion Other Cardiovascular History: PATIENT DENIES ANEURYSM, take BP medication, unsure of the name. 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: Musculoskeletal History: Reports: Back Pain, Chronic, Fibromyalgia, Osteoarthritis, Osteoporosis Neurological History: Reports: Other (See Below) Other Neuro History: CHRONIC PAIN SYNDROME Psychiatric History: Reports: Depression Endocrine/Metabolic History: Reports: None Hematologic History: Reports: Blood Transfusion(s) Immunologic History: Reports: None Oncologic (Cancer) History: Reports: None Dermatologic History: Reports: None - Infectious Disease History Infectious Disease History: Reports: Hepatitis C - Past Surgical History Head Surgeries/Procedures: Reports: None HEENT Surgical History: Reports: Oral Surgery Cardiovascular Surgical History: Reports: None Respiratory Surgical History: Reports: None GI Surgical History: Reports: Colonoscopy, EGD, Hernia, Inguinal, Hernia Repair/Other, Other (See Below) Other GI Surgeries/Procedures: umbilical hernias Female Surgical History: Reports: Breast Biopsy, Section, Hysterectomy Endocrine Surgical History: Reports: None Neurological Surgical History: Reports: None Musculoskeletal Surgical History: Reports: None Oncologic Surgical History: Reports: None Dermatological Surgical History: Reports: None Social & Family History - Family History HEENT: Reports: Impaired Vision Cardiac: Reports: None Respiratory: Reports: COPD GI: Reports: GERD : Reports: None OBGYN: Reports: Musculoskeletal: Reports: Arthritis Neurological: Reports: Migraines Psychiatric: Reports: Depression Endocrine/Metabolic: Reports: Diabetes, type II Hematologic: Reports: None Immunologic: Reports: None Dermatologic: Reports: None Oncologic: Reports: Breast, Other (See Below) Other Oncologic Family History: "STOMACH, BREAST, JUST ALL OVER" - Tobacco Use Tobacco Use Status *Q: Current Every Day Tobacco User Years of Tobacco use: 40 Packs/Tins Daily: 1 - Caffeine Use Caffeine Use: Reports: Coffee Caffeine Use Comment: 6-7 8OZ CUPS DAILY - Recreational Drug Use Recreational Drug Use: No - Living Situation & Occupation Living situation: Reports: , with Family Occupation: Unemployed Review of Systems - Review of Systems Review Of Systems: Comprehensive ROS is negative, except as noted in HPI. ED EXAM, GENERAL - Physical Exam Exam: See Below Exam Limited By: No Limitations General Appearance: Alert, Anxious, Thin Eye Exam: Bilateral Eye: EOMI Ears: Normal External Exam Nose: Normal Inspection Throat/Mouth: Normal Inspection Head: Atraumatic, Normocephalic Neck: Normal Inspection Respiratory/Chest: No Respiratory Distress, Lungs Clear Cardiovascular: Regular Rate, Rhythm, No Edema, Other (Extremities pink, pain with palpation to left forefoot. No cyanosis of extremity. Bothslightly cooler than ) GI/Abdominal: Normal Bowel Sounds Extremities: Slow Capillary Refill, Other (bilateral restelss leg type movements.). No: No Pedal Edema, Limited Range of Motion Neurological: Alert, Oriented Psychiatric: Anxious Course - Vital Signs Last Recorded V/S: Last Vital Signs Temp 98 F 02/22/21 00:16 Pulse 75 02/22/21 00:16 Resp 16 02/22/21 00:16 BP 174/92 H 02/22/21 02:38 Pulse Ox 100 02/22/21 00:16 - Orders/Labs/Meds Labs: Laboratory Tests 02/22/21 02/22/21 Range/Units 01:25 01:25 WBC 8.0 (5.0-10.0) 10^3/uL RBC 3.05 L (4.2-5.4) 10^6/uL Hgb 10.4 L D (12.0-16.0) g/dL Hct 32.2 L (37.0-47.0) % MCV 105.6 H D (80-100) fL MCH 34.1 H (27.0-34.0) pg MCHC 32.3 L (33.0-35.0) g/dL Plt Count 403 D (150-450) 10^3/uL Neut % (Auto) 62.2 (42.2-75.2) % Lymph % (Auto) 18.4 L (20.5-50.1) % [place] % (Auto) 9.3 H (2-8) % Eos % (Auto) 9.6 H (1.0-3.0) % Baso % (Auto) 0.5 (0.0-1.0) % Sodium 134 L (136-145) mmol/L Potassium 4.8 (3.5-5.1) mmol/L Chloride 101 (98-107) mmol/L Carbon Dioxide 23 (21-32) mmol/L Anion Gap 14.8 H (7-13) mEq/L BUN 20 H (7-18) mg/dL Creatinine 1.00 (0.55-1.02) mg/dL Est Cr Clr Drug Dosing 39.09 mL/min Estimated GFR (MDRD) 56 BUN/Creatinine Ratio 20.0 (No establ ref range) Glucose 87 (70-99) mg/dL Calcium 8.7 (8.5-10.1) mg/dL Total Bilirubin 0.4 (0.2-1.0) mg/dL AST 21 (15-37) U/L ALT 18 (14-59) U/L Alkaline Phosphatase 82 (46-116) U/L Total Protein 6.4 (6.4-8.2) g/dL Albumin 3.1 L (3.4-5.0) g/dL Globulin 3.3 Albumin/Globulin Ratio 0.94 Meds: Medications Discontinued Medications Generic Name Dose Route Start Last Admin Trade Name Freq PRN Reason Stop Dose Admin Tramadol HCl 50 mg 02/22/21 01:00 02/22/21 01:31 Tramadol 50 Mg Tab PO 02/22/21 01:01 50 mg ONETIME ONE Administration Departure - Departure Time of Disposition: 02:47 Disposition: Home, Self-Care 01 Condition: Good Clinical Impression: Chronic pain, Restless legs syndrome (RLS) - Discharge Information *PRESCRIPTION DRUG MONITORING PROGRAM REVIEWED*: No *COPY OF PRESCRIPTION DRUG MONITORING REPORT IN PATIENT DEON: No Instructions: Chronic Pain, Adult, Restless Legs Syndrome Forms: ED Department Discharge Additional Instructions: Follow up with primary care provider Tramadol 50mg one twice daily as needed. Follow up in clinic for pain medication refills Increase fluids. Sepsis Event Note (ED) - Evaluation Sepsis Screening Result: No Definite Risk - Focused Exam Vital Signs: Vital Signs Temp Pulse Resp BP Pulse Ox 02/22/21 02:38 174/92 H 02/22/21 00:16 98 F 75 16 100
== END 2021-02-22 03:03 | disposition home or self-care (01) ==
LOC: DL.ED 23:33
DX: G89.29 Other chronic pain (principal); G25.81 Restless legs syndrome; Z88.5 Allergy status to narcotic agent; Z88.0 Allergy status to penicillin; Z72.0 Tobacco use
CPT/HCPCS: 36415; 80053; 85025; 99283; A9270